=== PATIENT | female | born 1975 | race Caucasian/White ===

== ENCOUNTER 2017-08-01 09:29 | Emergency (ER) | payer SELFPAY ==
[~2017-08-01] VITALS: Ht 157.5 cm; Wt 47.0 kg
[2017-08-01 10:59] VITALS: BP 118/68
[2017-08-01] MEDS ORDERED: KETOROLAC 60MG/2ML VIAL IM ONE (11:00)
== END 2017-08-01 11:02 | disposition home or self-care (01) ==
LOC: ER 10:37
DX: M79.1 Myalgia (principal); M54.2 Cervicalgia; M25.512 Pain in left shoulder; E78.00 Pure hypercholesterolemia, unspecified; Z88.6 Allergy status to analgesic agent; V49.9XXA Car occupant (driver) (passenger) injured in unspecified traffic accident, initial encounter; Y93.89 Activity, other specified; Y92.89 Other specified places as the place of occurrence of the external cause; Y99.8 Other external cause status
CPT/HCPCS: 81025; 96372; 99283; J1885